=== PATIENT | male | born 1945 ===

== ENCOUNTER 2018-06-14 08:27 | Emergency (ER) | payer OTHER ==
[~2018-06-14] VITALS: Ht 167.6 cm; Wt 72.6 kg
[~2018-06-14 08:27] MED LIST: ASA81 MG; RELAFEN500 MG; TENORMIN50 MG
[2018-06-14] MEDS ORDERED: NORVASC10 MG (08:33)
== END 2018-06-14 14:42 | disposition home or self-care (01) ==
LOC: ER 08:27 → CPU-OBS 08:51 → ER 08:51
DX: I16.0 Hypertensive urgency (principal); I10 Essential (primary) hypertension; R07.89 Other chest pain